=== PATIENT | female | born 2000 | race Two or more races ===

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

== ENCOUNTER → 2019-04-25 | Emergency (ER) | payer MEDICAID | END | disposition left against medical advice (07) | LOC: ER 22:08 | DX: R30.0 Dysuria (principal); Z53.21 Procedure and treatment not carried out due to patient leaving prior to being seen by health care provider ==